=== PATIENT | female | born 1970 | race Caucasian/White ===

== ENCOUNTER 2017-03-04 16:18 | Emergency (ER) | payer BC ==
[2017-03-04 17:22] LABS: BASOPHILS 0.2 %; BASOPHILS ABSOLUTE 0.02 10/3/uL (0.0-0.16); EOSINOPHILS ABSOLUTE 0.36 10/3/uL (0.0-0.53); ER CBC TAT 0 Hrs 08 Mins; HEMOGLOBIN 11.1 g/dL (12.0-16.0); IMMATURE GRANULOCYTES 0.3 %; IMMATURE GRANULOCYTES ABSOLUTE 0.04 10/3/uL (0.0-0.11); LYMPHOCYTES 26.9 %; LYMPHOCYTES ABSOLUTE 3.25 10/3/uL (0.67-4.30); MANUAL DIFF NO %; MEAN CORPUS HGB CONC 30.8 g/dL (32.0-36.0); MEAN CORPUSCULAR HEMOGLOB 24.6 pg (26.0-34.0); MEAN CORPUSCULAR VOLUME 79.8 fL (80-100); MEAN PLATELET VOLUME 9.3 fL (9.2-13.0); MONOCYTES 4.3 %; MONOCYTES ABSOLUTE 0.52 10/3/uL (0.21-1.20); NEUTROPHILS 65.3 %; NEUTROPHILS ABSOLUTE 7.88 10/3/uL (2.02-8.40); PLATELET COUNT 334 10/3/uL (150-400); RBC DISTRIBUTION WIDTH 16.1 % (12.0-16.0); RED CELL COUNT 4.51 10/6/uL (4.0-5.6); WHITE BLOOD CELLS 12.1 10/3/uL (4.5-10.5)
[2017-03-04 17:38] LABS: A/G RATIO 0.7 (0.7-1.9); ALBUMIN 3.2 G/DL (3.5-5.0); ALKALINE PHOSPHATASE 69 U/L (45-117); CALCIUM, SERUM 8.7 MG/DL (8.5-10.4); CHLORIDE, SERUM 104 MMOL/L (96-112); CO2 (CARBON DIOXIDE) 28 MMOL/L (24-34); CREATININE 0.95 MG/DL (0.55-1.02); GFR AFRICAN AMERICAN 84 ML/MIN (>=60); GFR NON AFRICAN AMERICAN 73 ML/MIN (>=60); GLOBULIN 4.3 G/DL (2.5-4.1); GLUCOSE, SERUM 114 MG/DL (60-99); POTASSIUM, SERUM 3.4 MMOL/L (3.5-5.3); SGOT(AST) 8 U/L (5-40); SGPT(ALT) 23 U/L (5-65); SODIUM, SERUM 141 MMOL/L (135-148); TOTAL BILIRUBIN 0.5 MG/DL (0-1.2); TOTAL PROTEIN 7.5 G/DL (6.0-8.5)
[2017-03-04 17:39] LABS: BUN (BLOOD UREA NITROGEN) 12 MG/DL (6-23)
[2017-03-04 23:08] LABS: TROPONIN I <0.02 NG/ML (<0.05)
== END 2017-03-04 23:59 | disposition home or self-care (01) ==
LOC: ER 16:18
PROVIDERS: Emergency Medicine
DX: J45.909 Unspecified asthma, uncomplicated (principal); R09.1 Pleurisy; Z88.8 Allergy status to other drugs, medicaments and biological substances
CPT/HCPCS: 71020; 80053; 84484; 85025; 87040; 93005; 94640; 96374; 99285; J1885